=== PATIENT | female | born 1955 | race Caucasian/White ===

== ENCOUNTER 2024-01-29 15:49 | Outpatient (CLI) | payer BC | END 2024-01-29 15:50 | disposition home or self-care (01) | LOC: CT 15:49 | PROVIDERS: ATTEND Orthopaedic Surgery | DX: M17.12 Unilateral primary osteoarthritis, left knee (principal); R22.42 Localized swelling, mass and lump, left lower limb ==

== ENCOUNTER 2024-04-08 07:51 | Outpatient (CLI) | payer BC ==
[2024-04-08] MEDS ORDERED: Iopamidol 370 76% 100 ML VIAL ONE (10:32)
== END 2024-04-08 07:52 | disposition home or self-care (01) ==
LOC: BICCT 07:51
PROVIDERS: ATTEND Physician Assistant Medical
DX: K75.4 Autoimmune hepatitis (principal); D50.9 Iron deficiency anemia, unspecified; K91.89 Other postprocedural complications and disorders of digestive system; D73.2 Chronic congestive splenomegaly; K42.9 Umbilical hernia without obstruction or gangrene; N28.1 Cyst of kidney, acquired
CPT/HCPCS: 74170; 82565; Q9967